=== PATIENT | female | born 1995 | race Caucasian/White ===

== ENCOUNTER 2022-02-24 16:27 | Emergency (ER) | payer BC ==
[2022-02-24] MEDS ORDERED: Sodium Chloride 0.9% 1000 ML 1,000 ML IV STA (16:40)
[2022-02-24] MEDS ORDERED: Zofran 4 MG/2 ML VIAL IV ONE (16:40)
[2022-02-24] MEDS ORDERED: PROTONIX 40 MG IV IV ONE ×2 (16:40→17:31)
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
[2022-02-24 17:27] LABS: Basophil (Absolute #) 0.02 x10^3/uL (0-0.4); Eosinophil % 0.8 % (0.00-5.0); Eosinophil (Absolute #) 0.05 x10^3/uL (0-0.5); Hematocrit 43.9 % (35-47); Hemoglobin 14.4 g/dL (12.0-16.0); Lymphocyte (Absolute #) 1.78 x10^3/uL (1.0-4.6); Mean Corpuscular Hemoglobin 28.9 pg (26-32); Mean Corpuscular Hgb Concent. 32.8 g/dL (32-36); Mean Platelet Volume 9.7 fL (7.5-11.0); Monocyte (Absolute #) 0.36 x10^3/uL (0.0-1.3); Monocytes % 5.7 % (0.0-12.0); Neutrophil % 64.6 % (36.0-66.0); Platelet Count 239 x10^3/uL (150-450); Red Blood Count 4.99 x10^6/uL (4.1-5.4); Red Cell Distribution Width 11.9 % (11.5-14.0)
[2022-02-24] MEDS ORDERED: Zofran 4 MG/2 ML VIAL ONE (17:31)
[2022-02-24] MEDS ORDERED: Sodium Chloride 0.9% 1000 ML 1,000 ML ONE (17:31)
[2022-02-24 18:23] LABS: Epithelial Cells RARE /HPF (FEW); Mucus SLIGHT /HPF (NEGATIVE); RBC 0-2 /HPF (0-2); WBC 0-2 /HPF (0-5)
[2022-02-24 18:24] LABS: Appearance CLEAR (CLEAR); Bilirubin NEGATIVE (NEGATIVE); Glucose NEGATIVE (NEGATIVE); Ketones TRACE (NEGATIVE); Ph 6.5 (5-6); Protein,Urine Dip NEGATIVE (Negative); RBC NEGATIVE Ery/ul (0-5); Specific Gravity 1.025 (1.005-1.025); Urobilinogen 0.2 mg/dL (0-1)
[2022-02-24 18:25] LABS: Dipstick done @ ? MAIN LAB; Nitrite NEGATIVE (NEGATIVE); Urine Cultured Indicated? NO
[2022-02-24 18:49] LABS: ALBUMIN 3.9 g/dL (3.5-5.0); ALKALINE PHOSPHATASE 65 U/L (38-126); AMYLASE 63 U/L (30-110); ANION GAP 10.7 MEQ/L (5-15); BLOOD UREA NITROGEN 7 mg/dL (7-17); CHLORIDE 106 mmol/L (98-107); Calcium 8.9 mg/dL (8.4-10.2); Carbon Dioxide 24 mmol/L (22-30); Creatinine 1 0.69 mg/dL (0.52-1.04); EST GLOMERULAR FILTRATION RATE > 60.0 ML/MIN; Glucose 88 mg/dL (74-106); Potassium 3.6 mmol/L (3.5-5.1); SGOT/AST 37 U/L (14-36); SGPT/ALT 19 U/L (0-35); SODIUM 137 mmol/L (137-145); Total Protein 6.9 g/dL (6.3-8.2)
[2022-02-24 19:19] VITALS: O2SAT 99
[2022-02-24 19:22] LABS: White Blood Count 6.4 x10^3/uL (4.0-10.5)
[2022-02-24 20:02] VITALS: BP 113/75; PULSE 68
== END 2022-02-24 20:07 | disposition home or self-care (01) ==
LOC: ED 16:27
DX: R11.2 Nausea with vomiting, unspecified (principal); R19.7 Diarrhea, unspecified; E86.0 Dehydration; R10.9 Unspecified abdominal pain; R73.9 Hyperglycemia, unspecified; I10 Essential (primary) hypertension; Z79.899 Other long term (current) drug therapy
CPT/HCPCS: 36000; 36415; 80053; 81015; 81025; 82150; 83605; 85025; 96360; 96374; 96375; 99284; J2405

== ENCOUNTER 2022-04-28 08:20 | Emergency (ER) | payer BC, OTHER ==
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
[2022-04-28 09:33] VITALS: BP 123/87; O2SAT 99
[2022-04-28 10:02] VITALS: PULSE 60
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
[2022-04-28] MEDS ORDERED: MOTRIN 400 MG PO ONE (10:27)
[2022-04-28] MEDS ORDERED: NORCO 5/325 MG PO ONE (10:27)
[2022-04-28] MEDS ORDERED: MOTRIN 400 MG ONE (10:34)
[2022-04-28] MEDS ORDERED: NORCO 5/325 MG ONE (10:34)
== END 2022-04-28 10:49 | disposition home or self-care (01) ==
LOC: ED 08:20
DX: Z04.1 Encounter for examination and observation following transport accident (principal); R51.9 Headache, unspecified; M54.2 Cervicalgia; R07.9 Chest pain, unspecified; I10 Essential (primary) hypertension; Z79.899 Other long term (current) drug therapy
CPT/HCPCS: 70450; 71046; 72125; 81025; 93005; 99285; A9270-GY